=== PATIENT | female | born 1990 ===

== ENCOUNTER 2022-01-15 09:37 | Emergency (ER) | payer MEDICAID ==
[2022-01-15] MEDS ORDERED: Diazepam 5 MG Tab PO ONE (13:14)
[2022-01-15] MEDS ORDERED: Labetalol 100 MG Tab PO ONE (13:14)
== END 2022-01-15 17:30 | disposition home or self-care (01) ==
LOC: JD.ED 09:37
DX: O20.0 Threatened abortion (principal); I10 Essential (primary) hypertension; Z86.16 Personal history of COVID-19; Z87.891 Personal history of nicotine dependence; Z3A.13 13 weeks gestation of pregnancy
CPT/HCPCS: 36415; 76815; 81001; 84702; 85025; 85610; 85730; 86850; 86900; 86901; 99284; A9270